=== PATIENT | male | born 1940 | race Caucasian/White ===

== ENCOUNTER 2023-04-11 14:58 | Inpatient (IN) | payer MEDICARE ==
[2023-04-11] MEDS ORDERED: HEPARIN SODIUM 1,000 UN/ML (10ML VL) IV ONE ×2 (15:23→16:24)
[2023-04-11] MEDS ORDERED: NITROGLYCERIN OINT 1 INCH/GM PACKET TOPICAL STA (15:23)
[2023-04-11] MEDS ORDERED: ASPIRIN 81 MG PO STA (15:23)
--- NOTE | 2023-04-11 15:28 | ED ---
General Adult HPI - General Chief complaint: Chest Pain Stated complaint: chest pain Time Seen by Provider: 04/11/23 15:20 Source: patient, RN notes reviewed, old records reviewed Mode of arrival: wheelchair Limitations: no limitations - History of Present Illness Initial comments: This is an 82-year-old male who presents emergency Department with no si gnificant risk factors. Patient's no family history of heart disease. Patient states on Tuesday after he exercised he was having some chest tightness was very uncomfortable and eventually subsided once he rested. Patient states it started about an hour and a half prior to arrival. Patient states he again he describes it as a mid chest tightness denies any radiation denies shortness of breath. Patient denies any diaphoretic episodes. Patient denies any nausea. Patient denies abdominal pain. Patient denies any recent fever chills. - Related Data Allergies Allergy/AdvReac Type Severity Reaction Status Date / Time No Known Allergies Allergy Verified 04/11/23 15:04 Review of Systems ROS Statement: Those systems with pertinent positive or pertinent negative responses have been documented in the HPI. ROS Other: All systems not noted in ROS Statement are negative. 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 Patient is nontoxic and well- hydrated and is in mild distress. ENT: Neck is soft and supple. No significant lymphadenopathy is noted. Oropharynx is clear. Moist mucous membranes. Neck has full range of motion without eliciting any pain. EYES: The sclera were anicteric and conjunctiva were pink and moist. Extraocular movements were intact and pupils were equal round and reactive to light. E yelids were unremarkable. PULMONARY: Unlabored respirations. Good breath sounds bilaterally. No audible rales rhonchi or wheezing was noted. CARDIOVASCULAR: There is a regular rate and rhythm without any murmurs gallops or rubs. ABDOMEN: Soft and nontender with normal bowel sounds. SKIN: Skin is clear with no lesions or rashes and otherwise unremarkable. NEUROLOGIC: Patient is alert and oriented x3. Cranial nerves II through XII are grossly intact. Motor and sensory are also intact. Normal speech, volume and content. Symmetrical smile. MUSCULOSKELETAL: Normal extremities with adequate strength and full range of motion. No lower extremity swelling or edema. No calf tenderness. LYMPHATICS: No significant lymphadenopathy is noted PSYCHIATRIC: Normal psychiatric evaluation. Limitations: no limitations Course Vital Signs 04/11/23 04/11/23 04/11/23 15:01 15:25 15:28 Temperature 98.2 F Pulse Rate 52 L 58 L Respiratory 20 18 18 Rate Blood Pressure 166/86 143/109 143/109 O2 Sat by Pulse 97 97 97 Oximetry 04/11/23 15:30 Temperature Pulse Rate Respiratory 18 Rate Blood Pressure 185/117 O2 Sat by Pulse 97 Oximetry Medical Decision Making - Medical Decision Making EKG is interpreted by myself. EKG shows a sinus bradycardia with occasional PVC at 51 bpm [place] interval 162 QRS is 96 QT interval 444 QTC is 421. Patient's EKG shows ST segment elevation in precordial leads V4 V5 and V6. As well as II, III, and F aVF. Patient has T-wave inversions in leads 1 and aVL Was pt. sent in by a medical professional or institution (, PA, INSURANCE DEFENSE ATTORNEY, urgent care, hospital, or residential...) When possible be specific @ -No Did you speak to anyone other than the patient for history (EMS, parent, family, police, friend...)? What history was obtained from this source @ -No Did you review nursing and triage notes (agree or disagree)? Why? @ -I reviewed and agree with nursing and triage notes Were old charts reviewed (outside hosp., previous admission, EMS record, old EKG, old radiological studies, urgent care reports/EKG's, residential records)? Report findings @ -No old charts were reviewed Differential Diagnosis (chest pain, altered mental status, abdominal pain women, abdominal pain men, vaginal bleeding, weakness, fever, dyspnea, syncope, headache, dizziness, GI bleed, back pain, seizure, CVA, palpatations, mental h ealth, musculoskeletal)? @ -Chest pain EKG interpreted by me (3pts min.). @ -As above X-rays interpreted by me (1pt min.). @ -Chest x-ray shows slightly widened mediastinum CT interpreted by me (1pt min.). @ -None done U/S interpreted by me (1pt. min.). @ -None done What testing was considered but not performed or refused? (CT, X-rays, U/S, labs)? Why? @ -None What meds were considered but not given or refused? Why? @ -None Did you discuss the management of the patient with other professionals (professionals i.e. Dr., PA, INSURANCE DEFENSE ATTORNEY, lab, RT, psych nurse, social work manager, edge gluer, teacher, u.s. revenue officer, manager case management)? Give summary @ -I spoke with the [facility] agreed to admit the patient. Patient's EKG was suspicious for a STEMI so I called a STEMI overhead Dr. Justice call me back immediately and he will take the patient to the catheterization lab. Was smoking cessation discussed for >3mins.? @ -No Was critical care preformed (if so, how long)? @ -35 minutes Were there social determinants of health that impacted care today? How? (Homelessness, low income, unemployed, alcoholism, drug addiction, transportation, low edu. Level, literacy, decrease access to med. care, assisted, rehab)? @ -No Was there de-escalation of care discussed even if they declined (Discuss DNR or withdrawal of care, Hospice)? DNR status @ -No What co-morbidities impacted this encounter? (DM, HTN, Smoking, COPD, CAD, Cancer, CVA, ARF, Chemo, Hep., AIDS, mental health diagnosis, sleep apnea, morbid obesity)? @ -None Was patient admitted / discharged? Hospital course, mention meds given and route, prescriptions, significant lab abnormalities, going to OR and other pertinent info. @ -Was given aspirin nitroglycerin and a bolus of heparin. I spoke with Dr. Justice he was going to take the patient to the Sewer [facility]ipe [facility]. I also called back up to the [facility]er Pipe [facility] with the x-ray results of a wide mediastinum for Dr. Justice to review prior to doing the procedure. Undiagnosed new problem with uncertain prognosis? @ -No Drug Therapy requiring intensive monitoring for toxicity (Heparin, Nitro, Insulin, Cardizem)? @ -No Were any procedures done? @ -No Diagnosis/symptom? @ -STEMI Acute, or Chronic, or Acute on Chronic? @ -Acute Uncomplicated (without systemic symptoms) or Complicated (systemic symptoms)? @ -Complicated Side effects of treatment? @ -No Exacerbation, Progression, or Severe Exacerbation? @ -No Poses a threat to life or bodily function? How? (Chest pain, [place], [place], pneumonia, PE, COPD, DKA, ARF, appy, cholecystitis, CVA, Diverticulitis, Homicidal, Suicidal, threat to staff... and all critical care pts) @ -Yes this can cause poor perfusion and end organ dysfunction - Lab Data Result diagrams: 04/11/23 15:31 Lab Results 04/11/23 Range/Units 15:31 WBC 7.6 (3.8-10.6) k/uL RBC 5.48 (4.30-5.90) m/uL Hgb 17.1 (13.0-17.5) gm/dL Hct 50.0 (39.0-53.0) % MCV 91.3 (80.0-100.0) fL MCH 31.2 (25.0-35.0) pg MCHC 34.1 (31.0-37.0) g/dL RDW 12.9 (11.5-15.5) % Plt Count 190 (150-450) k/uL MPV 7.6 Neutrophils % 77 % Lymphocytes % 16 % Monocytes % 4 % Eosinophils % 1 % Basophils % 1 % Neutrophils # 5.8 (1.3-7.7) k/uL Lymphocytes # 1.2 (1.0-4.8) k/uL Monocytes # 0.3 (0-1.0) k/uL Eosinophils # 0.1 (0-0.7) k/uL Basophils # 0.1 (0-0.2) k/uL Disposition Clinical Impression: ST elevation myocardial infarction (STEMI) Disposition: ADMITTED IP TO THIS HOSP Referrals: None,Stated [Primary Care Provider] - 1-2 days Time of Disposition: 15:42
[2023-04-11] MEDS: NITROGLYCERIN SL TABS 0.4 MG TAB SUBLINGUAL STA ×2 (15:30→15:33)
[2023-04-11 15:35] LABS: Basophils # (A) 0.1 k/uL (0-0.2); Basophils % (A) 1 %; Eosinophils # (A) 0.1 k/uL (0-0.7); Eosinophils % (A) 1 %; HGB 17.1 gm/dL (13.0-17.5); Lymphocytes # (A) 1.2 k/uL (1.0-4.8); Lymphocytes % (A) 16 %; MCH 31.2 pg (25.0-35.0); MCHC 34.1 g/dL (31.0-37.0); MCV 91.3 fL (80.0-100.0); Mean Platelet Volume 7.6; Monocytes # (A) 0.3 k/uL (0-1.0); Monocytes % (A) 4 %; Neutrophils # (A) 5.8 k/uL (1.3-7.7); Neutrophils % (A) 77 %; Platelet Count 190 k/uL (150-450); RBC 5.48 m/uL (4.30-5.90); RDW 12.9 % (11.5-15.5); WBC 7.6 k/uL (3.8-10.6)
[2023-04-11] MEDS ORDERED: VERAPAMIL 2.5 MG/ML 2 ML AMP ONE (15:35)
[2023-04-11] MEDS ORDERED: LIDOCAINE 1% INJ 10MG/ML (20 ML MDV) ONE (15:35)
[2023-04-11] MEDS ORDERED: NITROGLYCERIN SL TABS 0.4 MG TAB SUBLINGUAL PRN ×2 (15:42→17:24)
--- NOTE | 2023-04-11 15:46 | XR ---
EXAMINATION TYPE: XR chest 1V DATE OF EXAM: 04/11/2023 COMPARISON: NONE HISTORY: 82-year-old male chest pain, STEMI TECHNIQUE: Single frontal view of the chest is obtained. FINDINGS: Tortuous/ectatic appearance to the aortic knob. Heart normal size. Mild interstitial promi nence appears mostly chronic. No kaci consolidation or pleural effusion. Loss of the subacromial spa ce on both sides. Findings compatible chronic full-thickness rotator cuff tears. IMPRESSION: Unable to exclude large aneurysm of the aorta. Further cross-sectional evaluation as clinically indic ated.
[2023-04-11] MEDS ORDERED: HEPARIN SODIUM 1,000 UN/ML (10ML VL) ONE (15:47)
[2023-04-11] MEDS ORDERED: RX INFO: IV CONTRAST WAS GIVEN 1 EACH MISC MISCELLANE PRN ×2 (15:47→17:24)
[2023-04-11 15:48] LABS: Partial Thromboplastin Time 26.2 sec (22.0-30.0); Prothrombin Time 10.8 sec (10.0-12.5)
[2023-04-11 16:02] LABS: ALT 19 U/L (4-49); AST 21 U/L (17-59); African American GFR (CKD) >90 (>60 ml/min/1.73 sqM); Albumin 4.2 g/dL (3.5-5.0); Alkaline Phosphatase 90 U/L (38-126); Anion Gap 11 mmol/L; Blood Urea Nitrogen 11 mg/dL (9-20); Carbon Dioxide 24 mmol/L (22-30); Chloride 102 mmol/L (98-107); Glucose 175 mg/dL (74-99); Magnesium 1.8 mg/dL (1.6-2.3); Non-African American GFR(CKD) 88 (>60 ml/min/1.73 sqM); Potassium 4.2 mmol/L (3.5-5.1); Sodium 137 mmol/L (137-145); Total Bilirubin 0.8 mg/dL (0.2-1.3); Total Protein 7.3 g/dL (6.3-8.2)
[2023-04-11] MEDS ORDERED: IV FLUID CONTINUATION 1,000 ML IV ONE (16:17)
[2023-04-11] MEDS ORDERED: MIDAZOLAM 2 MG/2 ML VIAL IVP ONE ×2 (16:17→16:37)
[2023-04-11] MEDS ORDERED: LIDOCAINE 1% INJ 10MG/ML (20 ML MDV) SQ ONE (16:18)
[2023-04-11] MEDS ORDERED: hydrALAZINE HCL 20 MG/ML 1 ML VIAL IVP ONE (16:20)
[2023-04-11] MEDS ORDERED: hydrALAZINE HCL 20 MG/ML 1 ML VIAL ONE (16:20)
[2023-04-11] MEDS ORDERED: VERAPAMIL SYRINGE (5 MG/10 ML) INTRAARTER ONE (16:20)
[2023-04-11] MEDS ORDERED: ATROPINE SULFATE 0.1 MG/ML 10ML SYRINGE IVP ONE (16:27)
[2023-04-11] MEDS ORDERED: fentaNYL (PF) 50 MCG/ML 2 ML AMP ONE (16:30)
[2023-04-11] MEDS: fentaNYL (PF) 50 MCG/1 ML VIAL IVP ONE ×2 (16:30→16:49)
[2023-04-11] MEDS ORDERED: IOPAMIDOL-370 100ML BTL INJ ONE ×2 (16:34→17:05)
--- NOTE | 2023-04-11 16:37 | CT ---
EXAMINATION TYPE: CT angio thor/abd pel aorta DATE OF EXAM: 04/11/2023 COMPARISON: None HISTORY: chest pain CT DLP: 1042.1 mGycm Automated exposure control for dose reduction was used. Contrast: 100 mL [id number] Technique: Axial images 2 mm thick sections. Reconstructed images in the coronal and sagittal plane. Pre and postcontrast imaging is performed. Three-D reconstructed images performed on December. By th e technologist during the period FINDINGS: CT chest: Minimal compressive atelectasis may be within the lung bases. Great vessels appear unremarkable. Thoracic aorta appears normal without dissection or aneurysm. The ascending thoracic aorta at the level of the main pulmonary artery is 3.4 cm. Transverse dimension an d thoracic aorta is 3.1 cm. No dissection or aneurysmal dilatation of the descending thoracic aorta i s evident. Abdominal aorta appears normal. No dissection or aneurysm is evident. Celiac axis and superior mesent vanesa arteries are patent. Renal arteries are patent. Bifurcation is unremarkable. Minimal vascular ca lcifications within the aorta and iliac vessels. Internal and external iliac vessels are patent. Comm on femoral arteries are patent. No aneurysmal dilatation or stenosis is identified Thyroid is poorly visualized. Tracheobronchial tree appears normal. No enlarged mediastinal or hilar adenopathy is evident. No pericardial effusion is evident. CT ABDOMEN: Small hiatal hernia may be present. Liver spleen adrenal glands and pancreas as visualize d are normal. The gallbladder is unremarkable. Kidneys appear normal without masses cysts or hydronep hrosis. No obvious renal stones are identified. Inferior vena cava is unremarkable. Loops of bowel within the abdomen and pelvis as visualized are normal. The appendix appears unremarka ble. Study is without oral contrast limiting bowel evaluation. Scattered diverticuli within the sigmo id colon. No adjacent inflammatory changes to suggest acute diverticulitis is evident. Urinary bladde r is unremarkable. Prostate is somewhat prominent. IMPRESSION: 1. NO SUSPICIOUS DISSECTION OR ANEURYSMAL DILATATION OF THE ABDOMINAL LOWER THORACIC AORTA. PROTOCOL THE EMERGENCY ROOM BY DR. BRUNO BY TELEPHONE INDICATION. 2. DIVERTICULOSIS WITHOUT ACUTE DIVERTICULITIS.
[2023-04-11] MEDS ORDERED: MORPHINE SULFATE 4 MG/ML SYRINGE ONE (16:42)
[2023-04-11] MEDS ORDERED: TICAGRELOR 90 MG TAB ONE (16:45)
[2023-04-11] MEDS ORDERED: MORPHINE SULFATE 4 MG/ML SYRINGE IVP ONE (16:46)
[2023-04-11] MEDS ORDERED: MAG HYDROX/AL HYDROX/SIMETH 30 ML CUP PO PRN (17:24)
[2023-04-11] MEDS ORDERED: ATROPINE SULFATE 0.1 MG/ML 10ML SYRINGE IV PRN (17:24)
[2023-04-11] MEDS ORDERED: ZOLPIDEM 5 MG TAB PO PRN (17:24)
[2023-04-11 17:27] LABS: Glucose,Whole Blood 116 mg/dL (70-110)
[2023-04-11] MEDS ORDERED: SODIUM CHLORIDE 0.9% 1,000 ML in EMPTY BAG 1 BAG IV SCH (17:30)
--- NOTE | 2023-04-11 17:36 | P.PCN ---
Date of Procedure: 04/11/23 Operative Findings: CARDIAC CATHETERIZATION AND PERCUTANEOUS CORONARY INTERVENTION PERFORMING PHYSICIAN: Remi Justice MD, [facility] PROCEDURE PERFORMED: 1. Selective right and left coronary angiogram 2. Left heart catheterization 3. Successful stenting of distal RCA using 3.5 x 20 mm Xience JONATHAN with an excellent angiographic results 4. Adjunctive use of intravascular imaging 5. Ultrasound-guided access of the right radial artery INDICATION: Acute inferior ST elevation myocardial infarction COMPLICATION: None APPROACH: Right radial artery LEVEL OF SEDATION: Moderate with the sedation time off 40 minutes PROCEDURE DESCRIPTION: After obtaining an informed consent the patient was brought to the cardiac laborer beam house. The right radial artery was cannulated using puncture technique under ultrasound guidance a micropuncture wire passed easily then I placed 6-Slovenian sheath at the right radial artery. I gave the patient 2 mg of verapamil intra- arterial and heparin IV was given with continuous ACT monitoring. Subsequently I did selective right and left coronary angiogram. Selective right coronary angiogram was performed using JR4 guiding catheter and then I intervened on the RCA and then selective left coronary angiogram was performed using JL 3.5 catheters. Left heart catheterization was performed using 6-Slovenian pigtail catheter. The procedure was completed was no complication SELECTIVE CORONARY ANGIOGRAM: The right coronary artery: Is acutely occluded by the bifurcation of the large PLV branch. There was large thrombus burden was identified. Left main: Its angiographically normal. Bifurcates into an LCx and LAD The left circumflex: Large caliber vessel nondominant vessel. The LCx has mild disease only. Gives rises into the first and second obtuse marginal branches both appeared to have mild disease only. The left anterior descending artery: The proximal LAD has mild disease only. The mid LAD has intermediate to severe lesion appeared to be in the range of 60-70%. The LAD gives rises into the first and second diagonal branches both appeared to have mild to moderate diffuse disease. HEMODYNAMICS: The LVEDP was about 8 mmHg was no significant gradient across aortic valve PCI OF THE RCA: Anticoagulation was initiated using heparin with continuous ACT monitoring. Subsequently I crossed the lesion using 04 run-through wire. I did predilatation using 2.5 x 12 mm balloon and subsequently attempting doing aspiration thrombectomy was not successful because the catheter would not make the turn to the RCA. After that I did intravascular ultrasound which showed diameter distally about 3.5 and proximally about 4 mm. Attempting advancing the stent was unsuccessful and that was 3.5 x 28 mm stent. I did wire the PLV branch using a sravanthi wire. After that I was able to advance 3.5 x 28 mm stent where the stent was positioned under fluoroscopy guidance and deployed under fluoroscopy guidance. The proximal portion of the stent was postdilated using 4 mm balloon. That was noncompliant balloon. Final angiogram showed good angiographic results and the procedure was completed was no complication with intravascular imaging showed that the stent was well opposed and well expanded. The patient did have KASEY-3 flow. He was asymptomatic. 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 I performed successful stenting of the RCA as described above Intermediate to severe disease involving the mid LAD Normal left-sided filling pressure POSTPROCEDURE MANAGEMENT: 1. Dual antiplatelet therapy using aspirin and Brilinta for 12 month 2. FFR of the LAD or obtain a stenosis as an outpatient 3. Follow-up with the patient
--- NOTE | 2023-04-11 17:40 | P.CRDCN ---
History of Present Illness Consult date: 04/11/23 Chief complaint: Chest pain History of present illness: The patient is an 82-year-old gentleman with no significant past medical history who presented to the emergency department complaining of chest discomfort. The patient has been experiencing chest discomfort for the last 24-48 hours. The pain was in the middle of the chest as a dull/pressure on the chest with no radiation and no stated symptoms but was worse with exertion and better with rest. He underwent an EKG and that showed sinus mechanism with inferior ST elevation myocardial infarction. Also the chest x-ray showed widened mediastinum. For that reason the patient initially underwent computed tomography scan of the chest which showed no evidence of aortic dissection and s ubsequently was brought to the cardiac oven laborer. Initially he was brought to the cardiac oven laborer before the CTA. The patient subsequently underwent an emergent heart catheterization and stenting of the RCA with a good angiographic results and he was found to have intermediate to severe disease involving the LAD. By the end of the procedure we achieve KASEY-3 flow and the patient was asymptomatic and hemodynamically stable. He will be on dual antiplatelet therapy along with high intensity statin. I am holding on beta raul because he was bradycardic and also multiple ROSA inhibitor because he was having marginally low blood pressure. The patient tolerated the procedure very well. The patient underwent an examination which showed vital signs appears to be overall relatively stable beside marginally low blood pressure marginally low heart rate with distant heart sounds and regular rhythm and diminished breathing sounds bilaterally. 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 Past Psychological History: Anxiety Smoking Status: Never smoker Past Alcohol Use History: None Reported Past Drug Use History: None Reported Medications and Allergies Allergies Allergy/AdvReac Type Severity Reaction Status Date / Time No Known Allergies Allergy Verified 04/11/23 15:04 Physical Exam Vitals: Vital Signs Temp Pulse Resp BP Pulse Ox 04/11/23 17:30 96 F L 84 12 131/81 99 04/11/23 17:22 78 24 01/08/24 15:30 18 185/117 97 01/08/24 15:28 18 143/109 97 04/11/23 15:25 58 L 18 143/109 97 04/11/23 15:01 98.2 F 52 L 20 166/86 97 Intake and Output 04/11/23 04/11/23 04/11/23 06:59 14:59 22:59 Intake Total 500 Balance 500 Intake: IV 500 Other: Weight 79.379 kg Results 04/11/23 15:31 04/11/23 15:31 Cardiac Enzymes 04/11/23 04/11/23 Range/Units 15:31 15:31 AST 21 (17-59) U/L Troponin I 0.040 H* (0.000-0.034) ng/mL Coagulation 04/11/23 Range/Units 15:31 PT 10.8 (10.0-12.5) sec APTT 26.2 (22.0-30.0) sec CBC 04/11/23 Range/Units 15:31 WBC 7.6 (3.8-10.6) k/uL RBC 5.48 (4.30-5.90) m/uL Hgb 17.1 (13.0-17.5) gm/dL Hct 50.0 (39.0-53.0) % Plt Count 190 (150-450) k/uL Comprehensive Metabolic Panel 04/11/23 Range/Units 15:31 Sodium 137 (137-145) mmol/L Potassium 4.2 (3.5-5.1) mmol/L Chloride 102 (98-107) mmol/L Carbon Dioxide 24 (22-30) mmol/L BUN 11 (9-20) mg/dL Creatinine 0.71 (0.66-1.25) mg/dL Glucose 175 H (74-99) mg/dL Calcium 9.0 (8.4-10.2) mg/dL AST 21 (17-59) U/L ALT 19 (4-49) U/L Alkaline Phosphatase 90 (38-126) U/L Total Protein 7.3 (6.3-8.2) g/dL Albumin 4.2 (3.5-5.0) g/dL Current Medications Generic Name Dose Route Start Last Admin Trade Name Freq PRN Reason Stop Dose Admin Al Hydroxide/Mg Hydroxide 30 ml 04/11/23 17:24 Mag Hydrox/Al Hydrox/Simeth 30 Ml Cup PO Q4HR PRN Heartburn Aspirin 325 mg 04/12/23 09:00 Aspirin 325 Mg Tab PO DAILY [facility] Aspirin 81 mg 04/12/23 09:00 Aspirin 81 Mg PO DAILY [facility] Atorvastatin Calcium 80 mg 04/11/23 21:00 Atorvastatin 80 Mg Tab PO HS [facility] Atropine Sulfate 0.5 mg 04/11/23 17:24 Atropine Sulfate 0.1 Mg/Ml 10ml Syringe IV ONCE PRN Symptomatic Bradycardia Sodium Chloride 1,000 ml/ IV 1,000 mls @ 75 mls/hr 04/11/23 17:30 Solution IV 04/11/23 22:31 .[id number] [facility] Miscellaneous Information 1 each 04/11/23 15:47 Rx Info: Iv Contrast Was Given 1 Each [facility] [place] [facility]CE[facility]ANE 04/13/23 15:48 DAILY PRN Per Protocol Miscellaneous Information 1 each 04/11/23 17:24 Rx Info: Iv Contrast Was Given 1 Each [facility] [place] MISCELLANE 04/13/23 17:25 DAILY PRN Per Protocol Nitroglycerin 0.4 mg 04/11/23 15:42 Nitroglycerin Sl Tabs 0.4 Mg Tab SUBLINGUAL Q5M PRN Chest Pain Nitroglycerin 1 inch 04/11/23 18:00 Nitroglycerin Oint 1 Inch/Gm Packet TOPICAL Q6HR [facility] Nitroglycerin 0.4 mg 04/11/23 17:24 Nitroglycerin Sl Tabs 0.4 Mg Tab SUBLINGUAL Q5M PRN Chest Pain Ticagrelor 90 mg 04/11/23 21:00 Ticagrelor 90 Mg Tab PO BID [facility] Protocol Zolpidem Tartrate 5 mg 04/11/23 17:24 Zolpidem 5 Mg Tab PO HS PRN Insomnia Intake and Output 04/11/23 04/11/23 04/11/23 06:59 14:59 22:59 Intake Total 500 Balance 500 Intake: IV 500 Other: Weight 79.379 kg Patient Weight 04/12/23 06:59 Weight 79.379 kg 04/11/23 15:31 04/11/23 15:31
[2023-04-11] MEDS: NITROGLYCERIN OINT 1 INCH/GM PACKET TOPICAL SCH ×2 (17:51→23:30)
[2023-04-11] MEDS: amLODIPine 5 MG TAB PO SCH (19:06)
[2023-04-11] MEDS: LOSARTAN 50 MG TAB PO SCH (19:06)
[2023-04-11] MEDS: TICAGRELOR 90 MG TAB PO SCH (20:01)
[2023-04-11] MEDS: ATORVASTATIN 80 MG TAB PO SCH (20:01)
[2023-04-12 05:10] LABS: African American GFR (CKD) >90 (>60 ml/min/1.73 sqM); Anion Gap 7 mmol/L; Blood Urea Nitrogen 8 mg/dL (9-20); Calcium 8.7 mg/dL (8.4-10.2); Carbon Dioxide 24 mmol/L (22-30); Chloride 104 mmol/L (98-107); Glucose 102 mg/dL (74-99); Non-African American GFR(CKD) 88 (>60 ml/min/1.73 sqM); Potassium 3.9 mmol/L (3.5-5.1); Sodium 135 mmol/L (137-145)
[2023-04-12] MEDS ORDERED: MAGNESIUM SULFATE-D5W PMX 1 GM in DEXTROSE/WATER 1 100ML.BAG IVPB ONE (05:40)
[2023-04-12] MEDS ORDERED: Magnesium Replacement Protocol 1 EACH MISC MISCELLANE PRN (05:40)
[2023-04-12] MEDS ORDERED: POTASSIUM CHLORIDE ER 20 MEQ TAB.ER PO SCH (06:00)
[2023-04-12] MEDS: NITROGLYCERIN OINT 1 INCH/GM PACKET TOPICAL SCH ×4 (06:11→23:15)
--- NOTE | 2023-04-12 07:32 | P.PN ---
Subjective Progress Note Date: 04/12/23 Principal diagnosis: Inferior STEMI The patient is an 82-year-old gentleman who presented to the hospital with a chest discomfort and was diagnosed as acute inferior ST elevation myocardial infarction and underwent heart catheterization and was found to have occluded RCA which was opened and stented with intermediate severe disease involving the LAD 04/12/2023 The patient was seen and evaluated this morning. He is asymptomatic. He is hemodynamically stable beside borderline low heart rate. He is not on any AV shanon raul agents. He is on dual antiplatelet therapy along with high intensity statin. The echo still pending. The examination is unremarkable beside distant heart sounds. He did have one episode of nonsustained ventricular tachycardia Assessment Acute inferior ST elevation myocardial infarction status post PCI of the RCA Dyslipidemia Plan Continue the current medical regimen Avoid any AV shanon raul agents Consider FFR of the LAD Follow-up with the patient Objective - Vital Signs Vital signs: Vital Signs Temp 98.3 F 04/12/23 04:00 Pulse 46 L 04/12/23 07:00 Resp 14 04/12/23 07:00 BP 122/69 04/12/23 07:00 Pulse Ox 95 04/12/23 07:00 FiO2 Intake & Output 04/11/23 04/12/23 04/12/23 18:59 06:59 18:59 Intake Total 575 900 75 Output Total 250 1150 Balance 325 -250 75 Weight 79.379 kg 79.3 kg Intake: IV 500 Intake, IV Titration 75 900 75 Amount Sodium Chloride 0.9% 1, 75 900 75 000 ml In Empty Bag 1 bag @ 75 mls/hr IV .[id number] [facility] Rx#:[id number] Output: Urine 250 1150 Other: Voiding Method Urinal # Voids 0 0 - Labs CBC & Chem 7: 04/11/23 15:31 04/12/23 04:21 Labs: Abnormal Lab Results - Last 24 Hours (Table) 04/11/23 04/11/23 04/11/23 Range/Units 15:31 15:31 17:25 Sodium (137-145) mmol/L BUN (9-20) mg/dL Glucose 175 H (74-99) mg/dL POC Glucose (mg/dL) 116 H (70-110) mg/dL Troponin I 0.040 H* (0.000-0.034) ng/mL 04/11/23 04/12/23 Range/Units 18:30 04:21 Sodium 135 L (137-145) mmol/L BUN 8 L (9-20) mg/dL Glucose 102 H (74-99) mg/dL POC Glucose (mg/dL) (70-110) mg/dL Troponin I 2.280 H* (0.000-0.034) ng/mL
[2023-04-12] MEDS: amLODIPine 5 MG TAB PO SCH (08:26)
[2023-04-12] MEDS: TICAGRELOR 90 MG TAB PO SCH ×2 (08:26→20:12)
[2023-04-12] MEDS: ASPIRIN 81 MG PO SCH (08:26)
[2023-04-12] MEDS: LOSARTAN 50 MG TAB PO SCH (08:26)
[2023-04-12] MEDS ORDERED: ASPIRIN 325 MG TAB PO SCH (09:00)
[2023-04-12 09:43] LABS: Chol/HDL Ratio 3.96 Ratio; LDL Cholesterol,Calculated 98.4 mg/dL (0.0-131.0)
--- NOTE | 2023-04-12 10:25 | P.HPIM ---
History of Present Illness This is a pleasant 82 years old male with no significant past medical history. Presents because of chest discomfort of 2 days' duration, he had chest discomfort last Tuesday where he was worked count in the gym but thus resolved about 2 days ago it came back, in the middle of the chest nonradiating felt like tightness With no associated dyspnea or coughing. No other change in urine or bowel habits. No headache dizziness weakness numbness. She never smoked, no alcohol no illicit drugs. Vital signs stable, Labs reviewed showed an unremarkable CBC, BMP, INR, liver enzymes. Chest x-rays negative for acute process there was suspicion of the thoracic aorta documentation so CTA was obtained showing no thoracic aortic dissection or aneurysmal dilatation. Abdominal aortic also was unremarkable. Other labs show an increased troponin 0.04 up to 2.2. EKG showing ST elevation in V3-V6 with some elevation in the 23 and respiratory culture and just in the lateral this with ST depression His PCP is Dr. Toscano. Patient is evaluated by maintenance mechanic technician and he underwent emergent cardiac cath status post PCI to RCA Patient currently is covered with aspirin and Brilinta Review of Systems Review of systems CONSTITUTIONAL: No fever, no malaise, no fatigue. HEENT: No recent visual problems or hearing problems. Denied any sore throat. CARDIOVASCULAR: No orthopnea, PND, no palpitations, no syncope. PULMONARY: No shortness of breath, no cough, no hemoptysis. GASTROINTESTINAL: No diarrhea, no nausea, no vomiting, no abdominal pain. Normoactive bowel sounds. NEUROLOGICAL: No headaches, no weakness, no numbness. HEMATOLOGICAL: Denies any bleeding or petechiae. GENITOURINARY: Denies any burning micturition, frequency, or urgency. MUSCULOSKELETAL/RHEUMATOLOGICAL: Denies any joint pain, swelling, or any muscle pain. ENDOCRINE: Denies any polyuria or polydipsia. 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 Past Anesthesia/Blood Transfusion Reactions: No Reported Reaction Past Psychological History: Anxiety Smoking Status: Never smoker Past Alcohol Use History: None Reported Past Drug Use History: None Reported Medications and Allergies Home Medications Medication Instructions Recorded Confirmed Type Aspirin EC [Ecotrin Low Dose] 81 mg PO DAILY 04/11/23 04/11/23 History LORazepam [Ativan] 0.5 mg PO TID PRN 04/11/23 04/11/23 History Latanoprost [Latanoprost 0.005%] 1 drop BOTH EYES HS 04/11/23 04/11/23 History Levothyroxine Sodium [Synthroid] 150 mcg PO DAILY 04/11/23 04/11/23 History Tamsulosin HCl [Flomax] 0.4 mg PO DAILY 04/11/23 04/11/23 History Allergies Allergy/AdvReac Type Severity Reaction Status Date / Time No Known Allergies Allergy Verified 04/11/23 15:04 Physical Exam Vitals: Vital Signs Temp Pulse Resp BP Pulse Ox 04/12/23 07:00 46 L 14 122/69 95 04/12/23 06:00 46 L 13 113/65 96 04/12/23 05:00 53 L 12 120/69 95 04/12/23 04:00 98.3 F 51 L 12 128/82 94 L 04/12/23 03:00 56 L 17 133/76 95 04/12/23 02:00 55 L 17 133/75 95 04/12/23 01:00 52 L 15 137/74 94 L 04/12/23 00:00 97.9 F 71 20 139/91 95 04/11/23 23:00 59 L 20 139/76 95 04/11/23 22:00 57 L 13 139/78 95 04/11/23 21:00 57 L 16 133/78 96 04/11/23 20:00 97.8 F 81 19 159/105 97 04/11/23 19:30 81 23 160/104 97 04/11/23 19:00 67 16 167/105 98 04/11/23 18:45 66 17 157/107 99 04/11/23 18:30 73 16 148/119 99 04/11/23 18:15 76 12 167/109 96 04/11/23 18:00 86 18 149/98 98 04/11/23 17:45 80 17 141/99 98 04/11/23 17:30 96 F L 84 12 131/81 99 04/11/23 17:22 78 24 04/11/23 15:30 18 185/117 97 04/11/23 15:28 18 143/109 97 04/11/23 15:25 58 L 18 143/109 97 04/11/23 15:01 98.2 F 52 L 20 166/86 97 Intake and Output 04/11/23 04/12/23 04/12/23 22:59 06:59 14:59 Intake Total 875 600 75 Output Total 650 750 Balance 225 -150 75 Intake: IV 500 Intake, IV Titration 375 600 75 Amount Sodium Chloride 0.9% 1, 375 600 75 000 ml In Empty Bag 1 bag @ 75 mls/hr IV .[id number] [facility] Rx#:[id number] Output: Urine 650 750 Other: Voiding Method Urinal Urinal # Voids 0 0 0 Weight 79.379 kg 79.3 kg GENERAL: The patient is alert and oriented x3, not in any acute distress. Well developed, well nourished. HEENT: Pupils are round and equally reacting to light. EOMI. No scleral icterus. No conjunctival pallor. Normocephalic, atraumatic. No pharyngeal erythema. No thyromegaly. CARDIOVASCULAR: S1 and S2 present. No murmurs, rubs, or gallops. PULMONARY: Chest is clear to auscultation, no wheezing , no crackles. ABDOMEN: Soft, nontender, nondistended, normoactive bowel sounds. No palpable o rganomegaly. MUSCULOSKELETAL: No joint swelling or deformity. EXTREMITIES: No cyanosis, clubbing, or pedal edema. NEUROLOGICAL: Gross neurological examination did not reveal any focal deficits. SKIN: No rashes. no petechiae. Results CBC & Chem 7: 04/11/23 15:31 04/12/23 04:21 Labs: Abnormal Lab Results - Last 24 Hours (Table) 04/11/23 04/11/23 04/11/23 Range/Units 15:31 15:31 17:25 Sodium (137-145) mmol/L BUN (9-20) mg/dL Glucose 175 H (74-99) mg/dL POC Glucose (mg/dL) 116 H (70-110) mg/dL Troponin I 0.040 H* (0.000-0.034) ng/mL 04/11/23 04/12/23 Range/Units 18:30 04:21 Sodium 135 L (137-145) mmol/L BUN 8 L (9-20) mg/dL Glucose 102 H (74-99) mg/dL POC Glucose (mg/dL) (70-110) mg/dL Troponin I 2.280 H* (0.000-0.034) ng/mL Assessment and Plan Assessment: Acute inferior ST elevation myocardial infarction status post cardiac cath and PCI to RCA. Chest pain secondary to above improved Sinus bradycardia with heart rate around 47-51 secondary to above, asymptomatic Hypothyroidism Plan: Continue with telemetry monitoring Patient remains in the ICU Continue with dual antiplatelet therapy Cardiology consult Check echocardiogram Labs and medication were reviewed.. Continue same treatment. Continue with symptomatic treatment. Resume home medication. Monitor labs and vitals. DVT and GI prophylaxis. Further recommendations as per clinical course of the patient DVT prophylaxis: Subcutaneous heparin GI Prophylaxis: Pepcid
[2023-04-12 11:02] VITALS: BMI 24.3
--- NOTE | 2023-04-12 11:23 | CA ---
Transthoracic Echo Report Name: Tony Amos Age: 82 Gender: M : 1940 Exam Date: 04/12/2023 07:23 Exam Location: [facility] Ht (in): 71 Wt (lb): 175 Ordering Physician: Remi Justice MD ([id number]) Attending/Referring Phys: Registered Veterinary Technician Isabela Sanford RDCS Procedure CPT: Indications: stemi Cardiac Hx: Technical Quality: Good Contrast 1: Total Dose (mL): Contrast 2: Total Dose (mL): MEASUREMENTS (Male / Female) Normal Values 2D ECHO LV Diastolic Diameter PLAX 4.2 cm 4.2 - 5.9 / 3.9 - 5.3 cm LV Systolic Diameter PLAX 2.6 cm IVS Diastolic Thickness 1.1 cm 0.6 - 1.0 / 0.6 - 0.9 cm LVPW Diastolic Thickness 1.2 cm 0.6 - 1.0 / 0.6 - 0.9 cm LV Relative Wall Thickness 0.6 RV Internal Dim ED PLAX 3.4 cm LA Systolic Diameter LX 3.4 cm 3.0 - 4.0 / 2.7 - 3.8 cm LV Diastolic Volume MOD 4C 102.8 cm??? LV Systolic Volume MOD 4C 50.4 cm??? LV Ejection Fraction MOD 4C 50.9 % LV Cardiac Index MOD 4C 1440.9 cm???/min???m??? LV Diastolic Length 4C 7.9 cm LV Systolic Length 4C 6.7 cm LV Diastolic Volume MOD 2C 83.8 cm??? LV Systolic Volume MOD 2C 39.9 cm??? LV Ejection Fraction MOD 2C 52.3 % LV Cardiac Index MOD 2C 1206.1 cm???/min???m??? LV Diastolic Length 2C 8.4 cm LV Systolic Length 2C 7.2 cm LA Volume 34.3 cm??? 18 - 58 / 22 - 52 cm??? LA Volume Index 17.2 cm???/m??? 16 - 28 cm???/m??? M-MODE Aortic Root Diameter MM 3.3 cm MV E Point Septal Separation 0.4 cm AV Cusp Separation MM 2.1 cm DOPPLER AV Peak Velocity 124.9 cm/s AV Peak Gradient 6.2 mmHg MV Area PHT 3.1 cm??? Mitral E Point Velocity 91.7 cm/s Mitral A Point Velocity 72.3 cm/s Mitral E to A Ratio 1.3 MV Deceleration Time 244.8 ms MV E' Velocity 6.9 cm/s Mitral E to MV E' Ratio 13.4 FINDINGS Left Ventricle Left ventricular ejection fraction is estimated at 55-60 %. Left ventricular cavity size normal. Mildly increased septal wall thickness. Right Ventricle Mild right ventricular dilatation. Unable to estimate the right ventricular systolic pressure. Right Atrium Normal right atrial size. Left Atrium Normal left atrial size. Mitral Valve Structurally normal mitral valve. No mitral stenosis, regurgitation or prolapse. Aortic Valve Trileaflet aortic valve. No aortic valve stenosis or regurgitation. Tricuspid Valve Structurally normal tricuspid valve. No tricuspid stenosis, regurgitation or prolapse. Pulmonic Valve Structurally normal pulmonic valve. Trace to mild pulmonic regurgitation. Pericardium No pericardial effusion. Aorta Normal size aortic root and proximal ascending aorta. CONCLUSIONS Normal LV function Previewed by: Dr. Burt Dang MD (Electronically Signed) Final Date: 12 April 2023 11:22
[2023-04-12] MEDS: FAMOTIDINE 20 MG/2 ML VIAL IV SCH (20:12)
[2023-04-12] MEDS: HEPARIN SODIUM,PORCINE 5,000 UNIT/ML 1 ML VIAL SQ SCH (20:12)
[2023-04-12] MEDS: ATORVASTATIN 80 MG TAB PO SCH (20:12)
[2023-04-13] MEDS: NITROGLYCERIN OINT 1 INCH/GM PACKET TOPICAL SCH ×2 (05:54→12:39)
[2023-04-13] MEDS: amLODIPine 5 MG TAB PO SCH (09:18)
[2023-04-13] MEDS: TICAGRELOR 90 MG TAB PO SCH ×2 (09:19→20:24)
[2023-04-13] MEDS: LOSARTAN 50 MG TAB PO SCH (09:19)
[2023-04-13] MEDS: HEPARIN SODIUM,PORCINE 5,000 UNIT/ML 1 ML VIAL SQ SCH ×2 (09:19→20:24)
[2023-04-13] MEDS: ASPIRIN 81 MG PO SCH (09:19)
[2023-04-13] MEDS: FAMOTIDINE 20 MG/2 ML VIAL IV SCH ×2 (12:39→20:24)
--- NOTE | 2023-04-13 13:05 | P.PN ---
Subjective HISTORY OF PRESENT ILLNESS: Patient is status post PCI of the RCA with Dr. ceja. Patient examined this morning at the bedside. Patient denies any chest pain or pressure. He denies shortness of breath. Echocardiogram completed revealing ejection fraction 55- 60%. Telemetry reveals sinus mechanism with heart rate in the 70s. Blood pressure stable. PHYSICAL EXAM: VITAL SIGNS: Reviewed. GENERAL: Well-developed in no acute distress. NECK: Supple. No JVD or thyromegaly LUNGS: Respirations even and unlabored. Lungs essentially clear to auscultation bilaterally. HEART: Regular rate and rhythm. S1 and S2 heard. EXTREMITIES: Normal range of motion. No clubbing or cyanosis. Peripheral pulses intact. No lower extremity edema ASSESSMENT: Acute inferior STEMI, status post PCI of the RCA Intermediate lesion of the LAD Hypertension Hyperlipidemia Borderline bradycardia, resolving PLAN: Continue dual-antiplatelet therapy with Aspirin and Brilinta Continue high-intensity statin Continue to monitor patient for an additional 24 hours We will reevaluate patient tomorrow and make a decision regarding FFR of the LAD Further recommendations pending patient's course Nurse practitioner note has been reviewed by physician. Signing provider agrees with the documented findings, assessment, and plan of care. Objective - Vital Signs Vital signs: Vital Signs Temp 98.0 F 04/13/23 08:00 Pulse 82 04/13/23 08:00 Resp 18 04/13/23 08:00 BP 121/74 04/13/23 08:00 Pulse Ox 95 04/13/23 08:00 FiO2 Intake & Output 04/12/23 04/13/23 04/13/23 18:59 06:59 18:59 Intake Total 185 110 Output Total 775 Balance -590 110 Weight 79.3 kg Intake: Intake, IV Titration 75 Amount Sodium Chloride 0.9% 1, 75 000 ml In Empty Bag 1 bag @ 75 mls/hr IV .[id number] [facility] Rx#:[id number] Oral 110 110 Output: Urine 775 Other: Voiding Method Urinal Toilet Toilet Urinal Urinal # Voids 1 2 - Labs CBC & Chem 7: 04/11/23 15:31 04/12/23 04:21
--- NOTE | 2023-04-13 14:37 | P.PN ---
Subjective Progress Note Date: 04/13/23 This is a pleasant 82 years old male with no significant past medical history. Presents because of chest discomfort of 2 days' duration, he had chest discomfort last Tuesday where he was worked count in the gym but thus resolved about 2 days ago it came back, in the middle of the chest nonradiating felt like tightness With no associated dyspnea or coughing. No other change in urine or bowel habits. No headache dizziness weakness numbness. She never smoked, no alcohol no illicit drugs. Vital signs stable, Labs reviewed showed an unremarkable CBC, BMP, INR, liver enzymes. Chest x-rays negative for acute process there was suspicion of the thoracic aorta documentation so CTA was obtained showing no thoracic aortic dissection or aneurysmal dilatation. Abdominal aortic also was unremarkable. Other labs show an increased troponin 0.04 up to 2.2. EKG showing ST elevation in V3-V6 with some elevation in the 23 and respiratory culture and just in the lateral this with ST depression His PCP is Dr. Toscano. Patient is evaluated by dock attendant and he underwent emergent cardiac cath status post PCI to RCA Patient currently is covered with aspirin and Brilinta 04/13. Patient seen and examined. No further episodes of chest pain or shortness of breath. Vital signs stable REVIEW OF SYSTEMS: CONSTITUTIONAL: No fever, no malaise,. CARDIOVASCULAR: No chest pain, no palpitations, no syncope. PULMONARY: No shortness of breath, no cough, GASTROINTESTINAL: No diarrhea, no nausea, no vomiting, no abdominal pain. NEUROLOGICAL: No headaches, no weakness, PHYSICAL EXAMINATION: GENERAL: The patient is alert and oriented x3, not in any acute distress. Well developed, well nourished. HEENT: Pupils are round and equally reacting to light. EOMI. No scleral icterus. No conjunctival pallor. Normocephalic, atraumatic. No pharyngeal erythema. No thyromegaly. CARDIOVASCULAR: S1 and S2 present. No murmurs, rubs, or gallops. PULMONARY: Chest is clear to auscultation, no wheezing or crackles. ABDOMEN: Soft, nontender, nondistended, normoactive bowel sounds. No palpable organomegaly. MUSCULOSKELETAL: No joint swelling or deformity. EXTREMITIES: No cyanosis, clubbing, or pedal edema. NEUROLOGICAL: Gross neurological examination did not reveal any focal deficits. SKIN: No rashes. Assessment and plan Acute inferior ST elevation myocardial infarction status post cardiac cath and PCI to RCA. Chest pain secondary to above improved Sinus bradycardia with heart rate around 47-51 secondary to above, asymptomatic Hypothyroidism Plan: Monitor vital signs Monitor CBC Monitor CMP Continue with telemetry monitoring Continue with dual antiplatelet therapy Avoid any AV shanon raul agents Consider FFR of the LAD Cardiology following Labs and medication were reviewed.. Continue same treatment. Continue with symptomatic treatment. Resume home medication. Monitor labs and vitals. DVT and GI prophylaxis. Further recommendations as per clinical course of the patient Dictation was produced using [employer] dictation software. please excuse any grammatical, word or spelling errors. Objective - Vital Signs Vital signs: Vital Signs Temp 98.0 F 04/13/23 08:00 Pulse 82 04/13/23 08:00 Resp 18 04/13/23 08:00 BP 121/74 04/13/23 08:00 Pulse Ox 95 04/13/23 08:00 FiO2 Intake & Output 04/12/23 04/13/23 04/13/23 18:59 06:59 18:59 Intake Total 185 110 Output Total 775 Balance -590 110 Weight 79.3 kg Intake: Intake, IV Titration 75 Amount Sodium Chloride 0.9% 1, 75 000 ml In Empty Bag 1 bag @ 75 mls/hr IV .[id number] [facility] Rx#:[id number] Oral 110 110 Output: Urine 775 Other: Voiding Method Urinal Toilet Toilet Urinal Urinal # Voids 1 2 - Labs CBC & Chem 7: 04/11/23 15:31 04/12/23 04:21
[2023-04-13] MEDS: ATORVASTATIN 80 MG TAB PO SCH (20:24)
[2023-04-13] MEDS ORDERED: LATANOPROST 0.005% OPHTH DROPS 2.5 ML BTL LEFT EYE SCH (21:00)
[2023-04-13] MEDS ORDERED: LATANOPROST LEFT EYE SCH (21:00)
[2023-04-14] MEDS ORDERED: ATORVASTATIN 80 MG TAB PO STA (09:06)
[2023-04-14] MEDS ORDERED: ALPRAZolam 0.5 MG TAB PO PRN (09:06)
[2023-04-14] MEDS ORDERED: ALPRAZolam 0.25 MG TAB PO PRN (09:06)
[2023-04-14] MEDS ORDERED: NITROGLYCERIN SL TABS 0.4 MG TAB SUBLINGUAL PRN (09:06)
[2023-04-14] MEDS ORDERED: ASPIRIN 325 MG TAB PO STA (09:06)
[2023-04-14] MEDS ORDERED: SODIUM CHLORIDE 0.9% 1,000 ML in EMPTY BAG 1 BAG IV SCH (09:15)
[2023-04-14] MEDS: FAMOTIDINE 20 MG/2 ML VIAL IV SCH (09:39)
[2023-04-14] MEDS: amLODIPine 5 MG TAB PO SCH (09:39)
[2023-04-14] MEDS: HEPARIN SODIUM,PORCINE 5,000 UNIT/ML 1 ML VIAL SQ SCH (09:39)
[2023-04-14] MEDS: TICAGRELOR 90 MG TAB PO SCH (09:39)
[2023-04-14] MEDS: ASPIRIN 81 MG PO SCH (09:39)
[2023-04-14] MEDS: LOSARTAN 50 MG TAB PO SCH (09:39)
[2023-04-14 11:16] LABS: Glucose,Whole Blood 85 mg/dL (70-110)
[2023-04-14] MEDS ORDERED: QUEtiapine 25 MG TAB PO PRN (12:54)
--- NOTE | 2023-04-14 13:17 | P.PN ---
Subjective HISTORY OF PRESENT ILLNESS: Patient is status post PCI of the RCA with Dr. ceja. Patient examined this morning at the bedside. Patient denies any chest pain or pressure. He denies shortness of breath. Echocardiogram completed revealing ejection fraction 55- 60%. Telemetry reveals sinus mechanism with heart rate in the 70s. Blood pressure stable. 04/14/2023 Patient examined this morning to bedside. Patient denies chest pain or pressure. He denies shortness of breath. He has been ambulating in his room without difficulty. Vital signs are stable. PHYSICAL EXAM: VITAL SIGNS: Reviewed. GENERAL: Well-developed in no acute distress. NECK: Supple. No JVD or thyromegaly LUNGS: Respirations even and unlabored. Lungs essentially clear to auscultation bilaterally. HEART: Regular rate and rhythm. S1 and S2 heard. EXTREMITIES: Normal range of motion. No clubbing or cyanosis. Peripheral pu lses intact. No lower extremity edema ASSESSMENT: Acute inferior STEMI, status post PCI of the RCA Intermediate lesion of the LAD Hypertension Hyperlipidemia Borderline bradycardia, resolving PLAN: Continue dual-antiplatelet therapy with Aspirin and Brilinta Continue high-intensity statin Continue additional cardiac medications Patient states he is hesitant to go home knowing he has another blockage. We will proceed with FFR of the LAD today with Dr. Justice Further recommendations pending patient's course Nurse practitioner note has been reviewed by physician. Signing provider agrees with the documented findings, assessment, and plan of care. Objective - Vital Signs Vital signs: Vital Signs Temp 97.8 F 04/14/23 12:00 Pulse 61 04/14/23 12:00 Resp 18 04/14/23 12:00 BP 137/79 04/14/23 12:00 Pulse Ox 96 04/14/23 12:00 FiO2 Intake & Output 04/13/23 04/14/23 04/14/23 18:59 06:59 18:59 Intake Total 330 Output Total 0 Balance 330 0 Weight 75.7 kg Intake: Oral 330 Output: Gastric Drainage 0 Urine 0 Stool 0 Urine/Stool Mix 0 Emesis 0 Oral Regurgitation 0 Other 0 Other: Voiding Method Toilet Toilet Toilet Urinal Urinal Urinal # Voids 1 0 # Bowel Movements 0 - Labs CBC & Chem 7: 04/11/23 15:31 04/12/23 04:21
[2023-04-14] MEDS ORDERED: MIDAZOLAM 2 MG/2 ML VIAL IVP ONE (13:19)
[2023-04-14] MEDS ORDERED: LIDOCAINE 1% INJ 10MG/ML (30 ML VIAL-PF) SQ ONE (13:19)
[2023-04-14] MEDS ORDERED: HEPARIN SODIUM 1,000 UN/ML (10ML VL) IV ONE (13:20)
[2023-04-14] MEDS ORDERED: VERAPAMIL SYRINGE (5 MG/10 ML) INTRAARTER ONE (13:20)
[2023-04-14] MEDS ORDERED: IOPAMIDOL-370 100ML BTL INJ ONE (13:26)
[2023-04-14] MEDS ORDERED: RX INFO: IV CONTRAST WAS GIVEN 1 EACH MISC MISCELLANE PRN (13:31)
--- NOTE | 2023-04-14 13:36 | P.PCN ---
Date of Procedure: 04/14/23 Operative Findings: iFR OF THE LAD Performing physician Remi Justice M.D. Procedure Performed: 1. iFRof the left anterior descending artery 2. Selective left coronary angiogram 3. Ultrasound-guided access of the right radial artery Indication: The patient is an 82-year-old gentleman who was admitted to the hospital a few days ago with acute inferior ST elevation myocardial infarction and he underwent PCI of the RCA. He was found to have intermediate to severe disease involving the LAD. Approach: Right radial artery Complications: None Level of Sedation: Moderate with a sedation length of 14 minutes Procedure Discussion: after obtaining an informed consent the patient was brought to the cardiac recyclable materials distributor. The right radial artery was cannulated using micropuncture technique under ultrasound guidance macro puncture wire passed easily then I placed a 6-Sami. I gave the patient for thousands of heparin intravenous and 2 mg of verapamil intra-arterial. Subsequently I did advanced JL 3.5 guiding catheter. I did ini tially zeroing of the Doppler wire and subsequently equalization between the Doppler wire and guiding catheter and subsequently the left main was engaged the LAD was wired after that. I did Doppler measurements using iFR and that came in to be 0.91 which is nonischemic. The procedure was completed was no complication Postprocedure Management: 1. continue dual antiplatelet therapy 2. aggressive cholesterol control 3. risk factors modification
[2023-04-14] MEDS ORDERED: SODIUM CHLORIDE 0.9% 1,000 ML IV SCH (13:45)
[2023-04-14 19:09] VITALS: BP 120/85; PULSE 65; RESP 16; TEMP 97.9
[2023-04-15] MEDS ORDERED: HEPARIN SODIUM,PORCINE (1 ML) 2,500 UNIT in SODIUM CHLORIDE 0.9% 250 ML IRRIGATION PRN (07:00)
[2023-04-15] MEDS ORDERED: HEPARIN SODIUM,PORCINE 10,000 UNIT in SODIUM CHLORIDE 0.9% 1,000 ML IRRIGATION PRN (07:00)
--- NOTE | 2023-04-17 21:03 | P.DS ---
Providers Date of admission: 04/11/23 15:45 Attending physician: Kwame Vu Consults: 04/11/23 15:43 Consult Physician Urgent Consulting Provider: Remi Justice Consult Reason/Comments: STEMI Do you want consulting provider notified?: Yes 04/11/23 17:25 Consult Physician Routine Consulting Provider: [facility] Consult Reason/Comments: Post Interventional Patient Do you want consulting provider notified?: Already Contacted Primary care physician: Stated None Hospital Course: Final Diagnosis Acute inferior ST elevation myocardial infarction status post cardiac cath and PCI to RCA iFR to the LAD reveals nonischemic change Chest pain secondary to above improved Sinus bradycardia with heart rate around 47-51 secondary to above, asymptomatic Hypothyroidism Discharge Disposition Stable for discharge home to continue dual antiplatelet therapy and aggressive risk factor modification. Recommending follow up with PCP in 1 to 2 days and cardiology follow up in 1 to 2 weeks. Hospital Course This is a pleasant 82 years old male with no significant past medical history. Presents because of chest discomfort of 2 days' duration, he had chest discomfort last Tuesday where he was worked count in the gym but thus resolved about 2 days ago it came back, in the middle of the chest nonradiating felt like tightness, denied any associated dyspnea or coughing. No headache dizziness weakness numbness. Never smoker. Blood work was unremarkable. Chest xray negative for acute findings questions of thoracic aorta so CTA was completed with no evidence of aortic dissection or aneurysmal dilation. EKG shows ST elevation V3-V6. Patient was admitted to the hospital with cardiology consultation. He was taken for emergent cardiac catheterization and underwent successful stenting of the RCA. He has been started on dual antiplatelet therapy with aspirin and brilinta. He was also found to have intermediate to severe disease of the LAD patient underwent iFR of the LAD came out at 0.91 consistent with non ischemic change and did not undergo stenting. Recommending aggressive cholesterol control and dual antiplatelet therapy. Echocardiogram came back at normal LV function. Patient was monitored on the cardiac unit. No chest pain, no shortness of breath. Lungs are clear S1 S2 auscultated abdomen is soft and nontender. HE will be discharged home. Please see medication reconciliation for a list of current medication. Thank you for allowing us to participate in the care of this patient. The impression and plan of care has been dictated by Alisia Barahona, Nurse Practitioner as directed. Dr. Alex MD I have performed a history and physical examination and medical decision making of this patient, discussed the same with the dictator, and agree with the dictators assessment and plan as written, documented as a scribe. Based on total visit time, I have performed more than 50% of this visit. Patient Condition at Discharge: Fair Plan - Discharge Summary New Discharge Prescriptions: New Ticagrelor [Brilinta] 90 mg PO BID #60 tab Losartan [Cozaar] 50 mg PO DAILY #30 tab Atorvastatin [Lipitor] 80 mg PO HS #30 tab amLODIPine [Norvasc] 5 mg PO DAILY #30 tab Nitroglycerin Sl Tabs [Nitrostat] 0.4 mg SUBLINGUAL Q5M PRN #20 tab PRN Reason: Chest Pain Continue Levothyroxine Sodium [Synthroid] 150 mcg PO DAILY Aspirin EC [Ecotrin Low Dose] 81 mg PO DAILY Tamsulosin HCl [Flomax] 0.4 mg PO DAILY Latanoprost [Latanoprost 0.005%] 1 drop BOTH EYES HS Discontinued LORazepam [Ativan] 0.5 mg PO TID PRN PRN Reason: Anxiety Discharge Medication List Aspirin EC [Ecotrin Low Dose] 81 mg PO DAILY 04/11/23 [History] Latanoprost [Latanoprost 0.005%] 1 drop BOTH EYES HS 04/11/23 [History] Levothyroxine Sodium [Synthroid] 150 mcg PO DAILY 04/11/23 [History] Tamsulosin HCl [Flomax] 0.4 mg PO DAILY 04/11/23 [History] Atorvastatin [Lipitor] 80 mg PO HS #30 tab 04/14/23 [Rx] Losartan [Cozaar] 50 mg PO DAILY #30 tab 04/14/23 [Rx] Nitroglycerin Sl Tabs [Nitrostat] 0.4 mg SUBLINGUAL Q5M PRN #20 tab 04/14/23 [Rx] Ticagrelor [Brilinta] 90 mg PO BID #60 tab 04/14/23 [Rx] amLODIPine [Norvasc] 5 mg PO DAILY #30 tab 04/14/23 [Rx] Follow up Appointment(s)/Referral(s): Remi Justice MD [STAFF PHYSICIAN] - 1 Week (please call to schedule) Long Trevino DO [REFERRING] - 1-2 Days (please call to schedule) Ambulatory/Diagnostic Orders: Basic Metabolic Panel [LAB.AMB] Time Frame: 3 Days, Location: None Selected Patient Instructions/Handouts: *Surgery [facility] - After Heart Catheterization - Field Assessor Instructions Activity/Diet/Wound Care/Special Instructions: Limited follow up on discharge Continue dual antiplatelet therapy See your PCP and strapper and buffer on discharge Discharge Disposition: HOME SELF-CARE
== END 2023-04-14 19:11 | disposition home or self-care (01) | DRG 322 ==
LOC: EC 14:58 → 2SICU 15:45 → 3SCARD 04-12 16:31
PROVIDERS: ADMIT Hospitalist; ATTEND Hospitalist
PROC: 027034Z Dilation of Coronary Artery, One Artery with Drug-eluting Intraluminal Device, Percutaneous Approach (ICD-10-PCS; principal; 2023-04-11 21:15)
PROC: 4A023N7 Measurement of Cardiac Sampling and Pressure, Left Heart, Percutaneous Approach (ICD-10-PCS; 2023-04-11 21:15)
PROC: B2111ZZ Fluoroscopy of Multiple Coronary Arteries using Low Osmolar Contrast (ICD-10-PCS; 2023-04-11 21:15)
PROC: B240ZZ3 Ultrasonography of Single Coronary Artery, Intravascular (ICD-10-PCS; 2023-04-11 21:15)
PROC: B2101ZZ Fluoroscopy of Single Coronary Artery using Low Osmolar Contrast (ICD-10-PCS; 2023-04-14)
PROC: 4A033BC Measurement of Arterial Pressure, Coronary, Percutaneous Approach (ICD-10-PCS; 2023-04-14)
DX: I21.19 ST elevation (STEMI) myocardial infarction involving other coronary artery of inferior wall (principal); I47.20 Ventricular tachycardia, unspecified; I10 Essential (primary) hypertension; E03.9 Hypothyroidism, unspecified; E78.5 Hyperlipidemia, unspecified; R00.1 Bradycardia, unspecified; F41.9 Anxiety disorder, unspecified; I49.3 Ventricular premature depolarization; Z79.890 Hormone replacement therapy; Z79.82 Long term (current) use of aspirin; Z79.899 Other long term (current) drug therapy
CPT/HCPCS: 36415; 71045; 71275; 74174; 76937; 80048; 80053; 80061; 83735; 84484; 85025; 85610; 85730; 92978; 93005; 93306; 93454; 93458; 93799; 96374; 99291